=== PATIENT | female | born 1980 | race Caucasian/White ===

== ENCOUNTER 2019-11-30 04:07 | Emergency (ER) | payer SELFPAY ==
[~2019-11-30] VITALS: Ht 160 cm; Wt 65.8 kg
[2019-11-30 04:30] VITALS: BP 134/87
[2019-11-30 04:38] VITALS: BP 136/82
--- NOTE | 2019-11-30 04:39 | NUR ---
PATIENT SEEN AND CLEARED FOR DISCHARGED BY DR. TALBOT. PATIENT GIVEN DISCHARGE PAPERWORK AND INSTRUCTIONS STATED UNDERSTANDING. ESCORTED OUT BY P IN CUSTODY.
== END 2019-11-30 04:39 ==
LOC: MED 04:07
DX: Z02.89 Encounter for other administrative examinations (principal); F10.120 Alcohol abuse with intoxication, uncomplicated; Y90.9 Presence of alcohol in blood, level not specified
CPT/HCPCS: 99283